=== PATIENT | female | born 1960 | race Two or more races ===

== ENCOUNTER 2016-10-31 09:28 | Emergency (ER) | payer OTHER ==
[~2016-10-31] VITALS: Ht 165.1 cm; Wt 76.2 kg
[2016-10-31] MEDS ORDERED: HYDROCODONE/APAP 5/325MG 1 EACH TABLET PO ONE (10:00)
[2016-10-31] MEDS ORDERED: HYDROCODONE/APAP 5/325MG 1 EACH TABLET ONE (10:07)
[2016-10-31 11:23] VITALS: BP 171/76
== END 2016-10-31 11:24 | disposition home or self-care (01) ==
LOC: ER 09:32
DX: S09.90XA Unspecified injury of head, initial encounter (principal); M25.572 Pain in left ankle and joints of left foot; F32.9 Major depressive disorder, single episode, unspecified; F17.200 Nicotine dependence, unspecified, uncomplicated; Z85.3 Personal history of malignant neoplasm of breast; W01.198A Fall on same level from slipping, tripping and stumbling with subsequent striking against other object, initial encounter; Y93.89 Activity, other specified; Y92.89 Other specified places as the place of occurrence of the external cause; Y99.9 Unspecified external cause status
CPT/HCPCS: 70450; 72125; 73610; 73630; 99284; A4606; Z7610